=== PATIENT | male | born 1970 | race Hispanic/Latino ===

== ENCOUNTER 2017-01-15 08:46 | Emergency (ER) | payer MEDICAID ==
[2017-01-15 08:55] VITALS: RESP 18
[2017-01-15] MEDS ORDERED: Lidocaine 2% w Epi 1:100,000 Inj IJ ONE ×2 (09:30→09:44)
--- NOTE | 2017-01-15 09:32 | C.PDOC ---
History Of Present Illness 46 yr old male presents to the ER for sudden onset of a abscess to the right upper area for the past 2 days. Patient states he noticed the abscess after using a back tool keeper. Reports of pain to the area. Patient denies history of abscess to the area, squeezing the area, discharge from the area, fever or chills. NEW ONSET ABSCESS R UPPER BACK X 2 DAYS. ONSET AFTER USING BACK STRAIGHTEDGE MAN. PAIN TO AREA. DENIES PRIOR ABSCESS TO AREA, SQUEEZING AREA, FEVER, DC, EXAM MILD DIST NNTOXIC SKIN +ABSCESS R SCAPULAR AREA BACK W LOCAL ERYTHEMA. INTACT REMAINDER NEG Time Seen by Provider: 01/15/17 09:19 Chief Complaint (Nursing): Abnormal Skin Integrity History Per: Patient History/Exam Limitations: no limitations Onset/Duration Of Symptoms: Sudden Onset (2 days ago) Past Medical History Reviewed: Historical Data, Nursing Documentation, Vital Signs Vital Signs: Last Vital Signs Temp 97.4 F L 01/15/17 10:12 Pulse 67 01/15/17 10:12 Resp 18 01/15/17 10:12 BP 147/80 01/15/17 10:12 Pulse Ox 96 01/15/17 10:12 - Medical History PMH: Asthma - [facility] Procedures TETANUS TOXOID ADMINIST (03/17/14) Family History: States: No Known Family Hx - Social History Hx Tobacco Use: Yes Hx Alcohol Use: No Hx Substance Use: Yes - Immunization History Hx Tetanus Toxoid Vaccination: No Hx Influenza Vaccination: No Hx Pneumococcal Vaccination: No Review Of Systems Except As Marked, All Systems Reviewed And Found Negative. Constitutional: Negative for: Fever, Chills Skin: Positive for: Other (Abscess to mariel right upper back area ) Physical Exam - Physical Exam Appears: Non-toxic, In Acute Distress (Mild) Skin: Warm, Dry, Other ((+) Abscess to the right scapular area of the back, with local erythema. ) Head: Atraumatic, Normacephalic Chest: Symmetrical, No Tenderness Cardiovascular: Rhythm Regular, No Murmur Respiratory: Normal Breath Sounds, No Rales, No Rhonchi, No Stridor, No Wheezing Extremity: Normal ROM, Capillary Refill (<2), No Swelling Neurological/Psych: Oriented x3, Normal Speech, Normal Motor ED Course And Treatment O2 Sat by Pulse Oximetry: 95 - Incision & Drainage Of Abscess Anesthesia: Lidocaine 2%, With Epi Prep Used: Betadine Procedure: Incised W/Scalpel Blade#:, Drained Pus, Irrigated Cavity W/Saline, Probed To Break Up Loculations, Packed W/Gauze Medical Decision Making Medical Decision Making: PLAN: * Tylenol PO * Motrin PO Disposition Counseled Patient/Family Regarding: Diagnosis, Need For Followup - Disposition Referrals: [facility] EM[facility] [Provider Group] Disposition: HOME/ ROUTINE Disposition Time: 10:06 Condition: IMPROVED Additional Instructions: RETURN 2 DAYS FOR PACKING CHANGE/REMOVAL. TAKE TYLENOL AND/OR MOTRIN DIRECTED FOR PAIN. KEEP DRY UNTIL REEVALUATION. Instructions: Abscess Incision and Drainage (ED) - Clinical Impression Clinical Impression: Abscess of back - Scribe Statement The provider has reviewed the documentation as recorded by the Sanjeevibrody Napoles Provider Attestation: All medical record entries made by the Sanjeevibrody were at my direction and personally dictated by me. I have reviewed the chart and agree that the record accurately reflects my personal performance of the history, physical exam, medical decision making, and the department course for this patient. I have also personally directed, reviewed, and agree with the discharge instructions and disposition.
[2017-01-15 10:13] VITALS: BP 147/80; PULSE 67; TEMP 97.4
[2017-01-15 10:34] VITALS: O2SAT 95
== END 2017-01-15 10:31 | disposition home or self-care (01) ==
LOC: C.ER 08:46
DX: L02.212 Cutaneous abscess of back [any part, except buttock and flank] (principal)

== ENCOUNTER 2017-01-17 16:43 | Emergency (ER) | payer MEDICAID ==
[2017-01-17 16:47] VITALS: BP 112/68; PULSE 91; TEMP 98.3; O2SAT 95
--- NOTE | 2017-01-17 17:19 | C.PDOC ---
History Of Present Illness The patient, a 46 y/o male, presents to the ED for wound check to his right upper back. Patient is s/p and I&D procedure performed on 01/15. Pt notes pain to the area improved. Patient denies fever, chills, draining, swelling, pain, and has no physical complaints at this time. Time Seen by Provider: 01/17/17 17:06 Chief Complaint (Nursing): Wound Check History Per: Patient History/Exam Limitations: no limitations Onset/Duration Of Symptoms: Days Ago Current Symptoms Are (Timing): Still Present Quality Of Symptoms: denies: Painful, Itching, Swollen, Draining Additional History Per: Patient Past Medical History Reviewed: Historical Data, Nursing Documentation, Vital Signs Vital Signs: Last Vital Signs Temp 98.3 F 01/17/17 16:46 Pulse 91 H 01/17/17 16:46 Resp 18 01/17/17 17:22 BP 112/68 01/17/17 16:46 Pulse Ox 95 01/17/17 19:06 - Medical History PMH: Asthma Denies: Diabetes, Hepatitis, HIV, HTN, Seizures, Sexually Transmitted Disease Surgical History: No Surg Hx - [facility] Procedures TETANUS TOXOID ADMINIST (03/17/14) Family History: States: Unknown Family Hx - Social History Hx Tobacco Use: Yes Hx Alcohol Use: No Hx Substance Use: No - Immunization History Hx Tetanus Toxoid Vaccination: No Hx Influenza Vaccination: No Hx Pneumococcal Vaccination: No Review Of Systems Except As Marked, All Systems Reviewed And Found Negative. Constitutional: Negative for: Fever, Chills Skin: Positive for: Other (+wound check. no pain, swelling, drainage, itching ) Physical Exam - Physical Exam Appears: Non-toxic, No Acute Distress Skin: Warm, Dry, Other (right upper back: packing removed. 1cm area of erythema surrounding incision. no discharge. ) Head: Atraumatic, Normacephalic Eye(s): bilateral: Normal Inspection, EOMI Nose: Normal Oral Mucosa: Moist Neck: Normal ROM, Supple Chest: Symmetrical Respiratory: No Accessory Muscle Use Extremity: Normal ROM, Capillary Refill (less than 2 seconds ) Neurological/Psych: Oriented x3, Normal Speech, Normal Cognition Gait: Steady ED Course And Treatment O2 Sat by Pulse Oximetry: 95 (on RA) Pulse Ox Interpretation: Normal Progress Note: Wound was irrigated with NS. Dressing was applied. On reassessment, patient is resting comfortably, showing no signs of distress, and is stable for discharge. Patient is given Rx for antibiotics secondary to surroundign ertyhema and is advised to follow up with PMD within 2-5 days for further evaluation. Disposition - Disposition Disposition: HOME/ ROUTINE Disposition Time: 17:17 Condition: STABLE Additional Instructions: Follow up with your primary medical doctor or clinic in 2-5 days for further evaluation. Take medications as prescribed. Return to the emergency department at any time if symptoms persist or worsen. Prescriptions: Cephalexin [cephalexin] 500 mg PO BID #14 cap Instructions: Abscess (ED) - Clinical Impression Clinical Impression: Abscess of back - PA / PICKER / PACKER / Resident Statement MD/DO has reviewed & agrees with the documentation as recorded. - Scribe Statement The provider has reviewed the documentation as recorded by the Scribe (Anny Lilly) All medical record entries made by the Scribe were at my direction and personally dictated by me. I have reviewed the chart and agree that the record accurately reflects my personal performance of the history, physical exam, medical decision making, and the department course for this patient. I have also personally directed, reviewed, and agree with the discharge instructions and disposition.
[2017-01-17 17:22] VITALS: RESP 18
== END 2017-01-17 17:22 | disposition home or self-care (01) ==
LOC: C.ER 16:43
DX: L02.212 Cutaneous abscess of back [any part, except buttock and flank] (principal)

== ENCOUNTER 2017-03-01 18:18 | Emergency (ER) | payer MEDICAID | END 2017-03-01 18:55 | disposition left against medical advice (07) | LOC: C.ER 18:18 | DX: M79.646 Pain in unspecified finger(s) (principal); Z02.9 Encounter for administrative examinations, unspecified ==

== ENCOUNTER 2017-04-15 10:27 | Emergency (ER) | payer MEDICAID ==
[2017-04-15 10:42] VITALS: BMI 32.5
[2017-04-15 10:43] VITALS: TEMP 97.7; O2SAT 97
[2017-04-15] MEDS ORDERED: Lidocaine 1% Inj (20ml) INFIL ONE (11:22)
[2017-04-15] MEDS ORDERED: Lidocaine 1% Inj (20ml) ONE (11:25)
--- NOTE | 2017-04-15 11:28 | C.PDOC ---
History Of Present Illness 46 year old male presents to the ED with complaints of pain to the fifth finger of the right hand after slipping and falling prior to arrival. Patient has history of prior dislocation of the same finger, and states it is never perfectl since then it is always mildly in flexion. He denies other injuries, sensory changes, fever, bleeding/drainage. Time Seen by Provider: 04/15/17 10:45 Chief Complaint (Nursing): Finger,Hand,&Wrist History Per: Patient History/Exam Limitations: no limitations Onset/Duration Of Symptoms: Hrs Current Symptoms Are (Timing): Still Present Quality: "Pain" Severity: Mild Past Medical History Reviewed: Historical Data, Nursing Documentation, Vital Signs Vital Signs: Last Vital Signs Temp 97.7 F 04/15/17 10:41 Pulse 71 04/15/17 12:04 Resp 20 04/15/17 12:04 BP 145/87 04/15/17 12:04 Pulse Ox 97 04/15/17 12:20 - Medical History PMH: Asthma - [facility] Procedures TETANUS TOXOID ADMINIST (03/17/14) Family History: States: No Known Family Hx - Social History Hx Tobacco Use: Yes Hx Alcohol Use: No Hx Substance Use: No - Immunization History Hx Tetanus Toxoid Vaccination: No Hx Influenza Vaccination: No Hx Pneumococcal Vaccination: No Review Of Systems Except As Marked, All Systems Reviewed And Found Negative. Constitutional: Negative for: Fever, Chills Genitourinary: Negative for: Rash Musculoskeletal: Positive for: Hand Pain (right hand fifth finger pain) Neurological: Negative for: Weakness, Numbness Physical Exam - Physical Exam Appears: Well, Non-toxic, No Acute Distress, Other (Bizarre affect) Skin: Warm, Dry Head: Atraumatic Eye(s): bilateral: Normal Inspection Oral Mucosa: Moist Cardiovascular: Rhythm Regular Respiratory: Normal Breath Sounds, No Rales, No Rhonchi, No Wheezing Extremity: No Normal ROM (at PIP, right 5th digit stuck in flexion, (+) mild swelling), Tenderness (diffuse tenderness to palpation of right 5th digit ), No Pedal Edema, No Calf Tenderness, Capillary Refill (< 2 sec all digits ) Pulses: Left Radial: Normal, Right Radial: Normal Neurological/Psych: Oriented x3, Normal Sensation Gait: Steady ED Course And Treatment O2 Sat by Pulse Oximetry: 97 (room air) Pulse Ox Interpretation: Normal - Other Rad Right Hand X-Ray X-Ray: Interpreted by Me, Viewed By Me, Read By Radiologist Interpretation: Volar Dislocation at the PIP joint, right 5th digit Progress Note: X-ray of the right hand ordered and reviewed. Patient given PO tylenol. Digital block done by me for finger reduction - approx 3ml 1% lidocaine injected at baseo of digit, traction placed on digit, (+) successful reduction confirmed by repeat Xray. Patient placed finger splint by me. Patient instructed to follow up with hand surgeon within 1 week. He understands he should return to ED if symptoms worsen. Reevaluation Time: 12:05 Reassessment Condition: Improved Disposition Counseled Patient/Family Regarding: Studies Performed, Diagnosis, Need For Followup, Rx Given - Disposition Referrals: Jv Huang MD [Staff Provider] - [facility] [Outside] Disposition: HOME/ ROUTINE Disposition Time: 12:05 Condition: STABLE Additional Instructions: FOLLOW UP WITH HAND SURGEON WITHIN 1 WEEK USE PAIN MEDICATION NEEDED RETURN TO ER IF SYMPTOMS WORSEN Prescriptions: Naproxen [Naprosyn Tab] 375 mg PO BID PRN #20 tab PRN Reason: pain Instructions: Finger Dislocation (ED) Forms: [employer] ([place] Islander) Print Language: KOSOVAN - POA Present On Arrival: Falls Or Trauma - Clinical Impression Clinical Impression: Dislocation, finger closed - Scribe Statement The provider has reviewed the documentation as recorded by the Scribrody Lucero All medical record entries made by the Scribe were at my direction and personally dictated by me. I have reviewed the chart and agree that the record accurately reflects my personal performance of the history, physical exam, medical decision making, and the department course for this patient. I have also personally directed, reviewed, and agree with the discharge instructions and disposition.
[2017-04-15 12:07] VITALS: BP 145/87; PULSE 71; RESP 20
--- NOTE | 2017-04-15 12:54 | RAD ---
Indication: Postreduction Right 5th digit radiographs Findings: A splint is seen the level of the 5th digit. No acute displaced fracture identified. Soft tissue swelling. No evidence of radiopaque foreign body. Well corticated 2 mm ossific density medial and distal aspect of the proximal phalanx. Impression: Soft tissue swelling. A splint at the level of the 5th digit. No acute displaced fracture identified.
--- NOTE | 2017-04-15 15:10 | RAD ---
PROCEDURE: Right small finger radiographs. HISTORY: RIGHT 5TH DIGIT INJURY R/O FX COMPARISON: None. TECHNIQUE: AP radiograph of the right hand, as well as spot oblique and lateral images of small finger were obtained. FINDINGS: RIGHT SMALL FINGER: There is a volar dislocation of the middle phalanx relative to the proximal phalanx of the right small finger. No acute fracture is clearly associated. Limited local soft tissue edema suspected. No suspicious lytic or blastic change. There is limited valgus angulation at the right small finger PIP dislocation. JOINTS: As above SOFT TISSUES: As above OTHER FINDINGS: As above IMPRESSION: Volar dislocation of the middle phalanx of the right small finger at the proximal interphalangeal joint. No fracture associated.
== END 2017-04-15 12:29 | disposition home or self-care (01) ==
LOC: C.ER 10:27
DX: S63.286A Dislocation of proximal interphalangeal joint of right little finger, initial encounter (principal); W01.0XXA Fall on same level from slipping, tripping and stumbling without subsequent striking against object, initial encounter

== ENCOUNTER 2017-05-05 09:50 | Emergency (ER) | payer MEDICAID ==
[2017-05-05 10:01] VITALS: BMI 33.0
--- NOTE | 2017-05-05 10:54 | C.PDOC ---
History Of Present Illness 46 y/o male presents to ED s/p hernia surgery at [place] 1 week ago with complaints of coughing today and hearing "pop" noise to the healing scar of surgery and some drainage. Patient denies fever, chills, injury to area, n/v/d or any other complaints at this time. Time Seen by Provider: 05/05/17 10:22 Chief Complaint (Nursing): Abnormal Skin Integrity History Per: Patient History/Exam Limitations: no limitations Onset/Duration Of Symptoms: Days Current Symptoms Are (Timing): Still Present Severity: Mild Recent travel outside of the [place] States: No Additional History Per: Patient Past Medical History Reviewed: Historical Data, Nursing Documentation, Vital Signs Vital Signs: Last Vital Signs Temp 98.3 F 05/05/17 10:01 Pulse 75 05/05/17 10:01 Resp 18 05/05/17 10:01 BP 133/88 05/05/17 10:01 Pulse Ox 97 05/05/17 11:45 - Medical History PMH: Asthma Surgical History: No Surg Hx - [facility] Procedures TETANUS TOXOID ADMINIST (03/17/14) Family History: States: No Known Family Hx - Social History Hx Tobacco Use: Yes Hx Alcohol Use: No Hx Substance Use: No - Immunization History Hx Tetanus Toxoid Vaccination: No Hx Influenza Vaccination: No Hx Pneumococcal Vaccination: No Review Of Systems Constitutional: Negative for: Fever, Chills Gastrointestinal: Negative for: Nausea, Vomiting, Diarrhea Skin: Negative for: Rash Physical Exam - Physical Exam Appears: Non-toxic, No Acute Distress Skin: Warm, Dry, No Rash Head: Atraumatic, Normacephalic Eye(s): bilateral: Normal Inspection Oral Mucosa: Moist Neck: Normal ROM, Supple Chest: Symmetrical Cardiovascular: Rhythm Regular, No Murmur Respiratory: Normal Breath Sounds, No Rales, No Rhonchi, No Wheezing Gastrointestinal/Abdominal: Tenderness (around area of vertical healing wound), No Guarding, No Rebound, Other (Dressing to vertical midline of abdomen with small amount of blood noted) Extremity: Normal ROM, No Pedal Edema Neurological/Psych: Oriented x3 Gait: Steady ED Course And Treatment O2 Sat by Pulse Oximetry: 97 (RA) Pulse Ox Interpretation: Normal - Other Rad No standard instances X-Ray: Interpreted by Me Interpretation: On re-evaluation feeling better. abdomen soft. Suture line intact Medical Decision Making Medical Decision Making: Plan: * Clean wound and re-dress wound * Discharge patient and advise to follow up with Surgeon Disposition Counseled Patient/Family Regarding: Diagnosis, Need For Followup - Disposition Referrals: [facility] [Outside] [facility] [Outside] Disposition: HOME/ ROUTINE Disposition Time: 11:50 Condition: STABLE Additional Instructions: Follow up with your surgeon for further evaluation Instructions: Abdominal Pain (ED) Forms: [employer] ([place] Islander) - POA Present On Arrival: None - Clinical Impression Clinical Impression: Abdominal pain, Hernia - PA / CV TECH / Resident Statement MD/DO has reviewed & agrees with the documentation as recorded. - Scribe Statement The provider has reviewed the documentation as recorded by the Sanjeevibrody Sharp All medical record entries made by the Sanjeevibrody were at my direction and personally dictated by me. I have reviewed the chart and agree that the record accurately reflects my personal performance of the history, physical exam, medical decision making, and the department course for this patient. I have also personally directed, reviewed, and agree with the discharge instructions and disposition.
--- NOTE | 2017-05-05 11:34 | RAD ---
PROCEDURE: Radiographs of the chest and abdomen (obstructive series) HISTORY: Abd Pain COMPARISON: No prior. TECHNIQUE: AP radiograph of the chest, with upright and supine radiographs of the abdomen. FINDINGS: CHEST: Lungs: Limited atelectasis or small effusion blunts the right costophrenic sulcus with remaining lung lombardo otherwise clear bilaterally. . Cardiovascular: Normal size heart. No pulmonary vascular congestion. Pleura: No pleural fluid. No pneumothorax. Other findings: None. ABDOMEN AND PELVIS: Bowel: Unremarkable bowel gas pattern. No evidence of mechanical obstruction. Free air: No definite free intraperitoneal gas. Bones: Unremarkable. Other findings: Soft tissue calcifications in the inferior right pelvis likely reflect phleboliths but are nonspecific ultimately. IMPRESSION: Questionable trace effusion or atelectasis blunts the right costophrenic sulcus with chest exam otherwise unremarkable. Nonobstructive bowel gas pattern. No definite free intraperitoneal gas.
[2017-05-05 12:44] VITALS: BP 131/77; PULSE 72; RESP 17; TEMP 98.7; O2SAT 98
== END 2017-05-05 12:44 | disposition home or self-care (01) ==
LOC: C.ER 09:50
DX: R10.9 Unspecified abdominal pain (principal); K46.9 Unspecified abdominal hernia without obstruction or gangrene